=== PATIENT | male | born 1960 | race Hispanic/Latino ===

== ENCOUNTER 2017-09-02 10:34 | Emergency (ER) | payer BC, SELFPAY ==
--- NOTE | 2017-09-02 11:38 | CT ---
HEAD CT NONCONTRAST: INDICATION: Trauma. FINDINGS: No evidence of intracranial hemorrhage, mass effect, midline shift, or ventriculomegaly. The calvari um is intact. No pneumocephalus. Imaged paranasal sinuses are clear. IMPRESSION: No acute intracranial hemorrhage or mass effect. POS: [facility]
--- NOTE | 2017-09-02 11:48 | CT ---
CERVICAL SPINE CT: INDICATION: Trauma, pain. FINDINGS: Craniocervical junction is intact. No fracture or subluxation of the cervical spine. There is mild degenerative change at multiple levels. There is a focal area of sclerosis, linear in morphology kip roximating the posterior confines of the C3 vertebral body, as well as involving the spinous process of C7. These may relate to small bone islands. IMPRESSION: No acute osseous abnormality of the cervical spine. POS: [facility]
--- NOTE | 2017-09-02 12:10 | RAD ---
THREE VIEWS RIGHT SHOULDER: Comparison: None. History: Right shoulder injury five days ago after falling from a roof. Right shoulder pain. FINDINGS: Three views of the right shoulder shows no evidence of acute fracture or dislocation. No degenerative changes are seen. No focal soft tissue swelling is seen. IMPRESSION: No significant right shoulder abnormality. POS: [facility] [place]
[2017-09-02] MEDS ORDERED: Ketorolac Tromethamine 30 MG/ML VIAL ONE (12:19)
== END 2017-09-02 12:45 | disposition home or self-care (01) ==
LOC: ERS 10:34
DX: S43.401A Unspecified sprain of right shoulder joint, initial encounter (principal); S00.11XA Contusion of right eyelid and periocular area, initial encounter; S80.812A Abrasion, left lower leg, initial encounter; E11.9 Type 2 diabetes mellitus without complications; I10 Essential (primary) hypertension; Z79.84 Long term (current) use of oral hypoglycemic drugs; Z79.899 Other long term (current) drug therapy; W13.2XXA Fall from, out of or through roof, initial encounter
CPT/HCPCS: 70450; 72125; 96372; J1885